=== PATIENT | female | born 1950 | race Caucasian/White ===

== ENCOUNTER → 2024-08-08 11:32 | Outpatient (REF) | payer MEDICARE, OTHER, SELFPAY | LOC: HWRAD 11:32 | PROVIDERS: ATTENDING PHYSICIAN Surgery; FAMILY PHYSICIAN Internal Medicine | DX: K42.9 Umbilical hernia without obstruction or gangrene (principal) | CPT/HCPCS: 74177; Q9967 ==

== ENCOUNTER → 2025-01-31 09:38 | Outpatient (REF) | payer MEDICARE, OTHER, SELFPAY ==
[2025-01-31 11:51] LABS: Urine Albumin 2+ (Neg - Trace); Urine Bilirubin Negative (Negative); Urine Character Cloudy (Clear); Urine Color Yellow; Urine Glucose 1+ (Negative); Urine Ketone Negative (Negative); Urine Leukocyte 3+ (Negative); Urine Nitrite Negative (Negative); Urine Occult Blood 2+ (Negative); Urine Urobilinogen Negative (Neg - 1+)
[2025-01-31 12:11] LABS: Urine Bacteria Moderate (Negative); Urine White Cell 30-40 /HPF (0-5)
[2025-01-31 12:24] LABS: ALT (SGPT) 16 U/L (0-35); AST (SGOT) 24 U/L (14-36); Albumin 3.7 g/dl (3.5-5.0); Alkaline Phosphatase 103 U/L (38-126); Blood Urea Nitrogen 14 mg/dl (7-17); Calcium 8.8 mg/dl (8.4-10.2); Carbon Dioxide 29 mmol/L (22-30); Chloride 95 mmol/L (98-107); Glucose 318 mg/dl (70-99); HDL Cholesterol 28 mg/dl; LDL Cholesterol, Calculated 115 mg/dl; Potassium 3.3 mmol/L (3.5-5.1); Sodium 134 mmol/L (135-145); Total Bilirubin 2.3 mg/dl (0.2-1.3); Total Cholesterol 198 mg/dl (50-199); Total Protein 6.6 g/dl (6.3-8.2); Triglyceride 276 mg/dl (10-149); Very Low Density Lipoprotein 55 mg/dl (0-30); eGFR > 60.00
[2025-01-31 12:57] LABS: Free T4 1.95 ng/dl (0.78-2.19)
[2025-01-31 13:02] LABS: Microalbumin, Random Urine 5.9 mg/dl (0.6-1.7); Microalbumin/creatinine Ratio 43.2 mg/g
[2025-01-31 13:11] LABS: TSH 6.95 uIU/ml (0.47-4.68)
[2025-02-01 21:03] LABS: Total T3 (Sendout) 78 ng/dL (80-200)
== END ==
LOC: HWLAB 09:38
PROVIDERS: ATTENDING PHYSICIAN Internal Medicine
DX: E11.65 Type 2 diabetes mellitus with hyperglycemia (principal); E78.2 Mixed hyperlipidemia; E03.9 Hypothyroidism, unspecified; K74.60 Unspecified cirrhosis of liver; R35.0 Frequency of micturition; M54.32 Sciatica, left side
CPT/HCPCS: 36415; 72110; 80053; 80061; 81003; 81015; 82043; 82570; 83036; 84439; 84443; 84480; 87077; 87086; 87186

== ENCOUNTER → 2025-02-25 12:17 | Outpatient (REF) | payer MEDICARE, OTHER, SELFPAY | LOC: HWRAD 12:17 | PROVIDERS: ATTENDING PHYSICIAN Internal Medicine | DX: M54.2 Cervicalgia (principal) | CPT/HCPCS: 72050 ==

== ENCOUNTER → 2025-02-27 08:03 | Outpatient (REF) | payer MEDICARE, OTHER, SELFPAY | LOC: HWWDC 08:03 | PROVIDERS: ATTENDING PHYSICIAN Internal Medicine | DX: E78.5 Hyperlipidemia, unspecified (principal); Z12.31 Encounter for screening mammogram for malignant neoplasm of breast; M81.0 Age-related osteoporosis without current pathological fracture | CPT/HCPCS: 77063; 77067; 77080 ==

== ENCOUNTER → 2025-06-04 10:42 | Outpatient (REF) | payer MEDICARE, OTHER, SELFPAY ==
[2025-06-04 15:31] LABS: ALT (SGPT) 32 U/L (0-35); AST (SGOT) 41 U/L (14-36); Albumin 3.9 g/dl (3.5-5.0); Alkaline Phosphatase 92 U/L (38-126); Blood Urea Nitrogen 29 mg/dl (7-17); Calcium 9.2 mg/dl (8.4-10.2); Carbon Dioxide 30 mmol/L (22-30); Chloride 100 mmol/L (98-107); Glucose 176 mg/dl (70-99); HDL Cholesterol 31 mg/dl; LDL Cholesterol, Calculated 59 mg/dl; Potassium 4.8 mmol/L (3.5-5.1); Sodium 135 mmol/L (135-145); Total Protein 6.7 g/dl (6.3-8.2); Very Low Density Lipoprotein 18 mg/dl (0-30); eGFR 53.06
[2025-06-04 15:34] LABS: Urine Character Cloudy (Clear)
[2025-06-04 15:46] LABS: Hematocrit 33.8 % (37.0-47.0); Hemoglobin 11.0 g/dL (12.0-16.0); Mean Corp Hgb Conc. 32.5 g/dL (33.0-37.0); Mean Corpuscular Volume 83.0 fL (81.0-99.0); Nucleated Red Blood Cells % 0 %; Platelet Count 42 10^3/uL (130-400); Red Cell Dist. Width 17.6 % (11.5-14.5)
[2025-06-04 15:58] LABS: Microalb - Urine Creatinine 92.100 mg/dl
[2025-06-04 16:02] LABS: Microalbumin, Random Urine 1.0 mg/dl (0.6-1.7)
[2025-06-04 16:04] LABS: Urine Red Blood Cell 0-2 /HPF (0-2); Urine White Cell 70-80 /HPF (0-5)
[2025-06-04 16:05] LABS: Urine Squamous Cell 0-2 /LPF (Few)
[2025-06-05 06:57] LABS: Glycohemoglobin (HgbA1c) 7.7 % (4.0-5.6)
[2025-06-07 06:09] LABS: Free Kappa Light Chains,Quant 40.73 mg/L (3.30-19.40); Free Lambda Light Chains,Quant 29.05 mg/L (5.71-26.30); Kappa/Lambda Fr Light Ratio 1.40 (0.26-1.65)
== END ==
LOC: HWLAB 10:42
PROVIDERS: ATTENDING PHYSICIAN Internal Medicine Nephrology; FAMILY PHYSICIAN Internal Medicine; OTHER PHYSICIAN Surgery Vascular Surgery; REFERRING PHYSICIAN Internal Medicine Endocrinology, Diabetes & Metabolism
DX: E11.9 Type 2 diabetes mellitus without complications (principal); R80.9 Proteinuria, unspecified; E87.6 Hypokalemia; Z01.818 Encounter for other preprocedural examination; E78.5 Hyperlipidemia, unspecified
CPT/HCPCS: 36415; 80053; 80061; 81003; 81015; 82043; 82570; 83036; 83520; 83521; 84156; 85025; 86335

== ENCOUNTER → 2025-06-06 12:23 | Outpatient (REF) | payer MEDICARE, OTHER, SELFPAY | LOC: RAD 12:23 | PROVIDERS: ATTENDING PHYSICIAN Surgery Vascular Surgery; FAMILY PHYSICIAN Internal Medicine; REFERRING PHYSICIAN Internal Medicine Endocrinology, Diabetes & Metabolism | DX: Q27.8 Other specified congenital malformations of peripheral vascular system (principal); E11.9 Type 2 diabetes mellitus without complications | CPT/HCPCS: 36415; 71275; 82943; Q9967 ==